=== PATIENT | male | born 1980 | race Caucasian/White ===

== ENCOUNTER 2016-08-03 19:43 | Emergency (ER) | payer BC ==
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
[2016-08-03 21:45] VITALS: TEMP 97.8; BMI 31.8
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
[2016-08-03 22:11] VITALS: BP 120/93; PULSE 72
== END 2016-08-03 22:16 | disposition home or self-care (01) ==
LOC: EDMC 19:43
DX: R04.0 Epistaxis (principal)
CPT/HCPCS: 70160; 99282